=== PATIENT | female | born 1990 | race Hispanic/Latino ===

== ENCOUNTER 2021-11-02 21:51 | Day surgery (SDC) | payer OTHER ==
[2021-11-02 22:24] VITALS: BMI 35.3
[2021-11-02] MEDS ORDERED: hydrALAZINE 20 MG/ML VIAL SLOW IVP PRN (23:05)
[2021-11-02 23:37] LABS: Bilirubin Neg (Negative); Blood, Urine 10 (Negative); Clarity Clear (Clear); Glucose, Urine (Dipstick) 250 mg/dL (Negative); Ketone, Urine Negative (Negative); Leukocyte Negative (Negative); Nitrite Negative (Negative); Protein, Urine (Dipstick) Negative (Neg-Trace); Urobilinogen Normal mg/dL (Less than 2)
[2021-11-02 23:48] LABS: Urine Culture Reflex No No
[2021-11-02 23:56] LABS: Bacteria/HPF None Seen HPF (None Seen); RBC/HPF 0-3 HPF (0-3); Squamous Epithelial 0-3 HPF (0-3); WBC/HPF 0-3 HPF (0-3)
[2021-11-03 00:52] LABS: Fetal Membranes Rupture No Membranes Rupture (No Rupture)
[2021-11-03 21:37] LABS: Chlamydia by PCR Not Detected (NotDetected); GC by PCR Not Detected (NotDetected)
== END 2021-11-03 01:46 | disposition home or self-care (01) ==
LOC: CSHLD/OP 21:51
PROVIDERS: ATTEND Obstetrics & Gynecology
DX: O47.03 False labor before 37 completed weeks of gestation, third trimester (principal); O99.013 Anemia complicating pregnancy, third trimester; D64.9 Anemia, unspecified; Z3A.34 34 weeks gestation of pregnancy; O26.893 Other specified pregnancy related conditions, third trimester; K59.00 Constipation, unspecified; R10.9 Unspecified abdominal pain; Z79.82 Long term (current) use of aspirin; Z79.899 Other long term (current) drug therapy
CPT/HCPCS: 81001; 84112; 87480; 87491; 87510; 87591; 87660; 99284

== ENCOUNTER 2021-12-11 19:30 | Inpatient (IN) | payer MEDICAID, OTHER, SELFPAY ==
[~2021-12-11 19:30] MED LIST: Bupivacaine 0.25% HCL 30 ML VIAL ONE
[2021-12-11] MEDS ORDERED: HYDROcodone/Acetaminophen 5/325 mg Tablet PO PRN ×2 (20:43)
[2021-12-11] MEDS ORDERED: Ibuprofen 800 MG TAB PO PRN (20:43)
[2021-12-11] MEDS ORDERED: Lidocaine 1% (PF) 30 ML VIAL SC PRN (20:43)
[2021-12-11] MEDS ORDERED: hydrALAZINE 20 MG/ML VIAL SLOW IVP PRN (20:43)
[2021-12-11] MEDS ORDERED: Promethazine HCl 25 MG/ML VIAL IM PRN (20:43)
[2021-12-11] MEDS ORDERED: Ondansetron PF 4 MG/2 ML Vial IVP PRN (20:43)
[2021-12-11] MEDS ORDERED: Butorphanol Tartrate 1 MG/ML VIAL SLOW IVP PRN (20:43)
[2021-12-11 20:55] VITALS: BMI 35.5
[2021-12-11 21:27] LABS: Hemoglobin 11.1 g/dL (12.0-15.5); Mean Corpuscular HGB CONC 33.8 g/dL (32.0-36.0); Mean Corpuscular Hemoglobin 28.5 pg (27.0-33.0); Mean Corpuscular Volume 84.1 fl (81.6-98.3); Mean Platelet Volume 8.9 fl (7.4-10.4); Platelet Count 282 10x3/uL (150-450); RBC Distribution Width 15.9 % (11.5-14.5); White Blood Cell (WBC) Count 9.5 10x3/uL (3.5-10.5)
[2021-12-11] MEDS ORDERED: NS w/ Oxytocin 30 units 500 ML IV SCH ×2 (21:30→22:00)
[2021-12-11] MEDS: Lactated Ringer's 1,000 ML IV SCH (21:45)
[2021-12-11 22:17] LABS: Syphilis Antibody Nonreactive (Nonreactive); Syphilis Antibody Index 0.08 S/CO (<1.00 Non-Reactive)
[2021-12-11 22:18] LABS: HBSAg Index 0.25 S/CO (0-0.99); Hep B Surf Ag Non-Reactive S/CO (NonReactive)
[2021-12-11 22:41] LABS: SARS-CoV-2 NAA Rapid Test Not Detected (NotDetected)
[2021-12-12] MEDS ORDERED: Fentanyl 2 mcg/Bup 0.1% Cadd 100 ML ONE (12:02)
[2021-12-12] MEDS ORDERED: Acetaminophen 325 MG TAB PO PRN ×2 (12:46→21:09)
[2021-12-12] MEDS ORDERED: Ondansetron PF 4 MG/2 ML Vial IVP PRN ×3 (12:46→21:09)
[2021-12-12] MEDS ORDERED: diphenhydrAMINE 50 MG/ML VIAL IVP PRN ×2 (12:46→19:17)
[2021-12-12] MEDS ORDERED: Promethazine HCl 25 MG/ML VIAL IM PRN ×2 (12:46→19:17)
[2021-12-12] MEDS ORDERED: Naloxone HCl 0.4 mg/ml Vial IVP PRN ×4 (12:46→19:17)
[2021-12-12] MEDS ORDERED: ePHEDrine Sulfate 50 MG/10 ML VIAL SLOW IVP PRN (12:46)
[2021-12-12] MEDS ORDERED: Moisturizing Cream (Eucerin) 113 GM JAR TOP PRN ×2 (12:46→19:17)
[2021-12-12] MEDS ORDERED: Lactated Ringer's 500 ML IV PRN (12:46)
[2021-12-12] MEDS ORDERED: Fentanyl 2 mcg/Bupivacaine 0.1% Cassette 100 ML EPIDURAL SCH (13:00)
[2021-12-12] MEDS ORDERED: Communication Order-Pharmacy FS SCH ×2 (13:00→19:30)
[2021-12-12] MEDS ORDERED: Azithromycin 500 MG VIAL ONE (17:15)
[2021-12-12] MEDS ORDERED: Famotidine/PF 20 mg/2ml Vial ONE (17:15)
[2021-12-12] MEDS ORDERED: CEFAZOLIN 2 GM VIAL ONE (17:15)
[2021-12-12] MEDS ORDERED: Bicitra 30 ML UDCUP PO PRN (17:28)
[2021-12-12] MEDS ORDERED: Famotidine/PF 20 mg/2ml Vial SLOW IVP PRN (17:28)
[2021-12-12] MEDS ORDERED: CEFAZOLIN 2 GM in Sodium Chloride 0.9% 100 ML IVPB SCH (17:30)
[2021-12-12] MEDS ORDERED: Azithromycin 500 MG in Sodium Chloride 0.9% 250 ML 250 ML IVPB SCH (17:30)
[2021-12-12] MEDS ORDERED: Oxytocin 10 UNITS/ML VIAL ONE ×2 (18:10→18:35)
[2021-12-12] MEDS ORDERED: Fentanyl 100 MCG/2 ML VIAL ONE (18:17)
[2021-12-12] MEDS ORDERED: Dexamethasone 4 mg/ml Vial ONE (18:19)
[2021-12-12] MEDS ORDERED: Promethazine HCl 25 MG/ML VIAL ONE (18:19)
[2021-12-12] MEDS ORDERED: Ketorolac Tromethamine 30 MG/ML VIAL ONE (18:35)
[2021-12-12] MEDS ORDERED: Morphine PF 10 MG/10 ML VIAL ONE (18:35)
[2021-12-12] MEDS ORDERED: Fentanyl 100 MCG/2 ML VIAL SLOW IVP PRN (19:17)
[2021-12-12] MEDS ORDERED: Promethazine HCl 25 MG SUPP PR PRN (19:17)
[2021-12-12] MEDS ORDERED: Ondansetron HCl/PF 4 MG/2 ML Vial IVP PRN (19:17)
[2021-12-12] MEDS ORDERED: Meperidine HCl/PF 25 MG/ML VIAL SLOW IVP PRN (19:17)
[2021-12-12] MEDS ORDERED: Naloxone HCl 0.4 mg/ml Vial IV PRN (19:17)
[2021-12-12] MEDS ORDERED: L&D-Morphine 4 MG/ML VIAL SLOW IVP PRN (19:17)
[2021-12-12] MEDS ORDERED: Ketorolac Tromethamine 30 MG/ML VIAL IVP SCH (19:30)
[2021-12-12] MEDS ORDERED: Boostrix 0.5 ML (Tdap) VIAL (>/=7 yrs of age) IM ONE (21:09)
[2021-12-12] MEDS ORDERED: Bisacodyl 10 MG SUPP PR PRN (21:09)
[2021-12-12] MEDS ORDERED: Lanolin Ointment 7 GM TUBE TOP PRN (21:09)
[2021-12-12] MEDS ORDERED: diphenhydrAMINE 25 MG CAP PO PRN (21:09)
[2021-12-12] MEDS ORDERED: hydrALAZINE 20 MG/ML VIAL SLOW IVP PRN (21:09)
[2021-12-12] MEDS ORDERED: Docusate 100 MG CAP PO SCH (21:30)
[2021-12-12] MEDS ORDERED: Ferrous Sulfate 325 MG TAB PO SCH (21:30)
[2021-12-12] MEDS ORDERED: NS w/ Oxytocin 30 units 500 ML IV SCH (21:30)
[2021-12-12] MEDS: Lactated Ringer's 1,000 ML IV SCH (22:12)
[2021-12-13] MEDS: Ketorolac Tromethamine 30 MG/ML VIAL IVP PRN ×2 (00:36→05:44)
[2021-12-13 04:59] LABS: Hemoglobin 8.9 g/dL (12.0-15.5); Mean Corpuscular HGB CONC 33.8 g/dL (32.0-36.0); Mean Corpuscular Hemoglobin 28.5 pg (27.0-33.0); Mean Corpuscular Volume 84.3 fl (81.6-98.3); Mean Platelet Volume 9.3 fl (7.4-10.4); Platelet Count 228 10x3/uL (150-450); RBC Distribution Width 16.3 % (11.5-14.5); Red Blood Cell (RBC) Count 3.12 10x6/uL (3.90-5.03); White Blood Cell (WBC) Count 18.4 10x3/uL (3.5-10.5)
[2021-12-13] MEDS ORDERED: Zolpidem Tartrate 5 MG TAB PO PRN (07:30)
[2021-12-13] MEDS ORDERED: HYDROcodone/Acetaminophen 5/325 mg Tablet PO PRN (07:30)
[2021-12-13] MEDS: Simethicone Chewable 80 MG TAB PO PRN ×2 (08:52→21:10)
[2021-12-13] MEDS: Docusate 100 MG CAP PO SCH ×2 (08:54→21:06)
[2021-12-13] MEDS: Prenatal Vitamin 1 TAB PO SCH (08:54)
[2021-12-13] MEDS: Ferrous Sulfate 325 MG TAB PO SCH ×2 (08:54→21:08)
[2021-12-13] MEDS: HYDROcodone/Acetaminophen 5/325 mg Tablet PO PRN ×2 (14:28→20:07)
[2021-12-13] MEDS: Ibuprofen 800 MG TAB PO SCH (21:06)
[2021-12-14] MEDS: Ibuprofen 800 MG TAB PO SCH (05:32)
[2021-12-14] MEDS ORDERED: Ibuprofen 800 MG TAB PO SCH (06:00)
[2021-12-14 07:59] VITALS: BP 111/57; TEMP 98
[2021-12-14] MEDS: Ferrous Sulfate 325 MG TAB PO SCH (08:30)
[2021-12-14] MEDS: Prenatal Vitamin 1 TAB PO SCH (08:30)
[2021-12-14] MEDS: Docusate 100 MG CAP PO SCH (08:30)
[2021-12-14] MEDS: Simethicone Chewable 80 MG TAB PO PRN (08:32)
== END 2021-12-14 12:05 | disposition home or self-care (01) | DRG 788 ==
LOC: CSHLD 20:36 → CSHPP 12-12 21:30
PROVIDERS: ADMIT Obstetrics & Gynecology; ATTEND Obstetrics & Gynecology
PROC: 10D00Z1 Extraction of Products of Conception, Low, Open Approach (ICD-10-PCS; principal; 2021-12-13)
DX: O99.02 Anemia complicating childbirth (principal); D64.9 Anemia, unspecified; Z20.822 Contact with and (suspected) exposure to COVID-19; Z3A.39 39 weeks gestation of pregnancy; Z37.0 Single live birth; Z79.82 Long term (current) use of aspirin; Z79.899 Other long term (current) drug therapy; O36.63X0 Maternal care for excessive fetal growth, third trimester, not applicable or unspecified; O76 Abnormality in fetal heart rate and rhythm complicating labor and delivery; O32.4XX0 Maternal care for high head at term, not applicable or unspecified; E66.9 Obesity, unspecified; O99.214 Obesity complicating childbirth; O32.8XX0 Maternal care for other malpresentation of fetus, not applicable or unspecified; O66.0 Obstructed labor due to shoulder dystocia
CPT/HCPCS: 36415; 51702; 85027; 86780; 86850; 86900; 86901; 87340; J0456; J0595; J1100; J1885; J2274; J2550; J2590; J3010; J7120; S0020; S0028; U0002